=== PATIENT | male | born 1930 | race Caucasian/White ===

== ENCOUNTER 2017-11-23 11:36 | Day surgery (SDC) | payer MEDICARE ==
[2017-11-22 11:06] VITALS: BMI 29.1
[2017-11-23 12:00] LABS: #Eosinphils 0.1 thou/uL (0.0-0.7); #Lymphocytes 1.6 thou/uL (1.20-3.40); #Monocytes 0.7 thou/uL (0.11-0.59); #Neutrophils 3.9 thou/uL (1.40-6.50); %Basophils 0.5 % (0.0-1.0); %Eosinophils 1.9 % (0.0-10.0); %Lymphocytes 25.5 % (21.0-51.0); %Monocytes 10.7 % (0.0-10.0); %Neutrophils 61.5 % (42.0-75.0); Hemoglobin 15.6 g/dL (14.0-18.0); Mean Corpuscular HGB CONC 32.8 g/dL (32.0-36.0); Mean Corpuscular Hemoglobin 31.9 pg (27.0-31.0); Mean Corpuscular Volume 97.1 fl (80.0-94.0); Mean Platelet Volume 8.4 fL (7.4-10.4); Platelet Count 184 thou/uL (130-400); RBC Distribution Width 11.3 % (11.5-14.5); Red Blood Cell (RBC) Count 4.89 mill/uL (4.70-6.10); White Blood Cell (WBC) Count 6.4 thou/uL (4.8-10.8)
[2017-11-23 12:11] LABS: PTT 39.6 SEC (22.9-36.1); Prothrombin Time 22.9 SEC (12.0-14.7)
[2017-11-23 12:27] LABS: Anion Gap 12 mmol/L (10-20); BUN (Urea Nitrogen) 17 mg/dL (8.4-25.7); Calc. Creatinine Clearance 85 mL/min (70-130); Calcium 9.6 mg/dL (7.8-10.44); Carbon Dioxide 24 mmol/L (23-31); Chloride 106 mmol/L (98-107); Estimated GFR-MDRD 84; Glucose 108 mg/dL (83-110); Potassium 4.5 mmol/L (3.5-5.1); Sodium 137 mmol/L (136-145)
[2017-11-23] MEDS ORDERED: PROPOFOL 20 ML ONE (12:53)
--- NOTE | 2017-11-23 15:55 | EKG ---
Test Reason : PREOP Blood Pressure : / mmHG Vent. Rate : 094 BPM Atrial Rate : 120 BPM P-R Int : 000 ms QRS Dur : 124 ms QT Int : 380 ms P-R-T Axes : 053 024 026 degrees QTc Int : 475 ms Sinus tachycardia with 2nd degree A-V block (Mobitz I) with occasional Premature ventricular complexe s Non-specific intra-ventricular conduction delay Abnormal ECG Confirmed by PEE DOTY ([id number]) on 11/23/2017 3:55:04 PM Referred By: JEFF Confirmed By:PEE DOTY
[2017-11-23] MEDS ORDERED: PROPOFOL 200 MG/20 ML VIAL ONE (15:58)
--- NOTE | 2017-11-23 16:04 | EKG ---
Test Reason : POST CARDIOVERSION Blood Pressure : / mmHG Vent. Rate : 059 BPM Atrial Rate : 059 BPM P-R Int : 236 ms QRS Dur : 122 ms QT Int : 468 ms P-R-T Axes : 063 009 042 degrees QTc Int : 463 ms Sinus bradycardia with 1st degree A-V block Incomplete right bundle branch block Abnormal ECG Confirmed by PEE DOTY ([id number]) on 11/23/2017 4:03:47 PM Referred By: JEFF Confirmed By:PEE ODTY
--- NOTE | 2017-11-23 16:05 | OP ---
DATE OF PROCEDURE: 11/23/2017 CARDIOVERSION REPORT REFERRING PHYSICIAN: . REASON FOR PROCEDURE: Mr. Srinivasan is a pleasant 87-year-old man with prior history of atrial arrhythmi as, status post left ablation procedure, on chronic flecainide therapy, but now with recurrence in at rial tachycardia despite flecainide. He is well-anticoagulated with Xarelto. He is here for cardiov ersion. PROCEDURE: The patient received deep sedation by anesthesia specialist with propofol. After adequat e level of sedation achieved, a synchronized 70 joule shock promptly converted the patient back to si nus rhythm. Rate is 70 beats per minute. CONCLUSION: Successful cardioversion. PLAN: Continue flecainide for now and Xarelto. Office followup.
== END 2017-11-23 14:41 | disposition home or self-care (01) ==
LOC: CCL 11:36
PROVIDERS: ATTEND Internal Medicine Cardiovascular Disease
PROC: 5A2204Z Restoration of Cardiac Rhythm, Single (ICD-10-PCS; principal; 2017-11-23)
DX: I48.1 Persistent atrial fibrillation (principal); Z79.01 Long term (current) use of anticoagulants; Z79.899 Other long term (current) drug therapy
CPT/HCPCS: 80048; 85025; 85610; 85730; 92960; 93005; 93010; J2704

== ENCOUNTER 2018-12-18 15:23 | Observation (INO) | payer MEDICARE ==
[2018-12-18 15:59] LABS: #Basophils 0.1 thou/uL (0.0-0.2); #Eosinphils 0.1 thou/uL (0.0-0.7); #Lymphocytes 1.8 thou/uL (1.20-3.40); #Monocytes 0.7 thou/uL (0.11-0.59); %Basophils 1.2 % (0.0-1.0); %Eosinophils 1.3 % (0.0-10.0); %Monocytes 7.8 % (0.0-10.0); %Neutrophils 68.8 % (42.0-75.0); Hemoglobin 14.2 g/dL (14.0-18.0); Mean Corpuscular HGB CONC 33.8 g/dL (32.0-36.0); Mean Corpuscular Hemoglobin 32.1 pg (27.0-31.0); Mean Corpuscular Volume 95.1 fL (78.0-98.0); Platelet Count 200 thou/uL (130-400); RBC Distribution Width 11.7 % (11.5-14.5); Red Blood Cell (RBC) Count 4.42 mill/uL (4.70-6.10); White Blood Cell (WBC) Count 8.8 thou/uL (4.8-10.8)
[2018-12-18 16:10] LABS: ALT (SGPT) 19 U/L (8-55); AST (SGOT) 16 U/L (5-34); Albumin 3.9 g/dL (3.4-4.8); Alkaline Phosphatase 59 U/L (40-150); Anion Gap 14 mmol/L (10-20); BUN (Urea Nitrogen) 18 mg/dL (8.4-25.7); Bilirubin, Total 0.7 mg/dL (0.2-1.2); CK (CPK) 37 U/L (30-200); Calc. Creatinine Clearance 0 mL/min (70-130); Calcium 9.5 mg/dL (7.8-10.44); Carbon Dioxide 20 mmol/L (23-31); Chloride 106 mmol/L (98-107); Estimated GFR-MDRD 69; Globulin 2.2 g/dL (2.4-3.5); Glucose 146 mg/dL (83-110); Lipase 16 U/L (8-78); Potassium 4.2 mmol/L (3.5-5.1); Protein, Total 6.1 g/dL (5.8-8.1); Sodium 136 mmol/L (136-145)
--- NOTE | 2018-12-18 16:17 | RAD ---
EXAM: CHEST ONE VIEW HISTORY: Dyspnea and increased heart rate. Shortness of breath. COMPARISON: 06/21/2013 FINDINGS: A dual-lead left subclavian cardiac pacemaking device is now noted in place. Cardiac silhouette is at the upper limits of normal in size. Epicardial fat pad is seen at the left lung base. There is suggestion of slight blunting of the left lateral costophrenic angle, but this may be attributable to overlying soft tissue density as opposed to left pleural effusion. The lungs are otherwise clear. Vascular calcifications are seen in the thoracic aorta. The osseous structures are intact. IMPRESSION: 1. Blunting of the left lateral costophrenic angle, but this is felt to be related to overlying soft tissue density as opposed to pleural effusion. However, if patient's symptoms persist, follow-up PA and lateral chest x-ray is recommended.
[2018-12-18] MEDS ORDERED: Aspirin Chewable 81 MG TAB ONE (16:54)
[2018-12-18 19:28] LABS: Troponin I Less than 0.010 ng/mL (< 0.028)
[2018-12-18] MEDS ORDERED: Acetaminophen 325 MG TAB PO PRN (19:44)
[2018-12-18] MEDS ORDERED: Potassium Chloride 20 MEQ TAB PO PRN (21:06)
[2018-12-18] MEDS ORDERED: Finasteride 5 MG TAB PO SCH ×2 (21:07→21:30)
[2018-12-18] MEDS ORDERED: Furosemide 40 MG/4 ML VIAL SLOW IVP SCH (21:15)
[2018-12-18] MEDS ORDERED: Flecainide 50 MG TAB PO SCH (21:15)
[2018-12-18] MEDS ORDERED: Rivaroxaban 10 MG TAB PO SCH (21:15)
[2018-12-18] MEDS ORDERED: Metoprolol Tartrate 25 MG TAB PO SCH (21:15)
[2018-12-18] MEDS ORDERED: Loperamide HCl 2 MG CAP PO PRN (21:23)
[2018-12-18] MEDS ORDERED: Ezetimibe 10 MG TAB PO SCH (21:30)
[2018-12-18] MEDS: Famotidine 20 MG TAB PO SCH (21:35)
[2018-12-18] MEDS ORDERED: Lisinopril 20 MG TAB PO SCH (21:45)
[2018-12-18 22:29] LABS: Troponin I Less than 0.010 ng/mL (< 0.028)
--- NOTE | 2018-12-18 22:51 | HP ---
PRIMARY CARE PHYSICIAN: Dr. David Swanson. CHIEF COMPLAINT: Shortness of breath. HISTORY OF PRESENT ILLNESS: Mr. Srinivasan is a pleasant 88-year-old male with a past medical history of atrial fibrillation, status post ablations x2; hypertension; hyperlipidemia; and benign prostate hypertrophy, who had presented to [facility] ER earlier today after he experienced palpitations and worsening shortness of breath. He states that he had noticed that his heart rate running a little higher than normal. The last couple days, he states that his pacemaker device had been picking up some atrial fibrillation, he states that he had made an appointment with Dr. Mg for Wednesday and was waiting for his appointment; however, he had taken a trip with his to [place] and he states that he had noticed some worsening shortness of breath, therefore, wanted to come in sooner and be checked out. Upon arriving, he was noted to be in atrial flutter with a controlled rate on the monitor, therefore, Cardizem was not started. His D-dimer was normal and less than 0.27. His initial troponin was also negative at 0.014. However, his BNP was elevated at 309.7, which would cause some suspicion of acute on chronic CHF. The patient states that he takes furosemide at home just as needed, however, has not really been taking it lately. He was given 325 oral aspirin and transferred to [facility]. Upon arriving, the patient denied any headache, fever, chills, blurred vision, change in vision, lightheadedness, or dizziness. He had denied any chest pain, palpitation, shortness of breath, abdominal pain, nausea, vomiting, or diarrhea. He had denied any upper or lower extremity edema; however, he does appear to have some trace edema in his lower extremities. He states that his loan review manager is Dr. Farmer and he reports some mild shortness of breath with exertion, however, stable at this time. He had remained in atrial flutter on the monitor, however, in controlled rates in the 70s, 80s, and 90s. It was determined at that time the patient be brought under observation, be monitored on telemetry. A consult was placed for Cardiology Services and an echocardiogram was ordered and currently pending at this time. Due to patient's underlying pacemaker, an order for pacemaker interrogation was also placed and pending at this time. REVIEW OF SYSTEMS: All other systems reviewed and found to be negative unless mentioned in the HPI. PAST MEDICAL HISTORY: History of atrial fibrillation, status post ablation x2; pacemaker; benign prostatic hypertrophy; hypertension; hyperlipidemia; CHF; squamous cell carcinoma. PAST SURGICAL HISTORY: Ablation x2, left total knee replacement, cancerous mole removed from right upper chest, tonsillectomy, and pacemaker placement. PSYCHIATRIC HISTORY: None. SOCIAL HISTORY: The patient reports drinking socially which is very rarely. He denied any illicit drug use and he states that he is a former smoker, however, he quit over 38 years ago. KNOWN ALLERGIES: None. CURRENT HOME MEDICATIONS: 1. Xarelto 20 mg p.o. daily. 2. Potassium chloride 20 mEq p.o. daily. 3. Metoprolol 12.5 mg p.o. b.i.d. 4. Lisinopril 20 mg p.o. b.i.d. 5. Flecainide 100 mg p.o. b.i.d. 6. Finasteride 5 mg p.o. at bedtime. 7. Ezetimibe 10 mg p.o. at bedtime. 8. Amlodipine 5 mg p.o. daily. 9. Testosterone gel 20.25 mg daily. 10. Multivitamin 1 tablet p.o. daily. 11. Loperamide 2 mg p.o. as needed for diarrhea. 12. Furosemide 20 mg p.o. daily p.r.n. swelling. 13. Vitamin B12 at 1000 mcg p.o. daily. 14. Vitamin D3 at 1000 units p.o. daily. PHYSICAL EXAMINATION: VITAL SIGNS: BP 128/73, pulse 75, respirations 12, temperature 98.4 degrees Fahrenheit, O2 saturations 95% on room air. GENERAL: The patient is awake, alert, and oriented x3. He is currently lying comfortably in bed and in no acute distress. His is at bedside. HEENT: Atraumatic, normocephalic. Pupils are round and reactive to light. Extraocular muscles intact. Moist mucous membranes noted. NECK: Soft, supple. Trachea midline. CARDIOVASCULAR: Positive S1 and S2. Irregularly irregular. No murmur appreciated. RESPIRATORY: Clear to auscultation bilaterally. No wheezes, rales, or rhonchi. ABDOMEN: Soft, nontender. Bowel sounds present. A reducible periumbilical hernia noted. MUSCULOSKELETAL: Strength 5+ bilaterally in upper and lower extremities. Moves all extremities equal. Radial and pedal pulses palpable 2+ bilaterally. Trace edema noted in lower extremities. NEUROLOGIC: Cranial nerves 2 through 12 grossly intact. No focal deficits noted. Speech intact and normal. Gait not assessed. SKIN: Warm, dry, and intact. No rashes. No ulceration noted. PSYCHIATRIC: Good mood and affect. LABORATORY DATA: WBC 8.8, RBC 4.42, hemoglobin 14.2, platelets 200. D-dimer less than 0.27. Sodium 136, potassium 4.2, anion gap 14, BUN 18, creatinine 1.02, estimated GFR 69, glucose 146. Troponin 0.014, less than 0.010. BNP 309.7. Lipase 16. DIAGNOSTIC IMAGING: Portable chest x-ray shows blunting of left lateral costophrenic angle, but this felt to be related to overlying soft tissue density as opposed to pleural effusion. ASSESSMENT AND PLAN: 1. Atrial flutter with controlled ventricular rate. The patient will be placed on his home regimen at this time and Cardiology Services will be consulted in the morning. He will remain on the telemetry monitoring during his hospital stay. The patient's pacemaker will be interrogated and pending. 2. Acute on chronic congestive heart failure. The patient will be treated on his home regimen along with IV furosemide for further diuresis. A repeat echocardiogram will be ordered for the morning. 3. History of hypertension, currently stable. The patient will be resumed on home regimen. 4. Hyperlipidemia. Continue on home statin. Recheck lipid panel in the morning. 5. Shortness of breath and palpitations. This is likely secondary to patient's underlying atrial flutter and/or acute on chronic congestive heart failure. We have ruled out pulmonary embolism with his normal D-dimer. 6. BPH. Continue on home regimen. 7. Deep venous thrombosis and gastrointestinal prophylaxis. The patient will be continued on home Xarelto and he will be continued on PPI during hospital stay. CODE STATUS: Full code. Surrogate decision maker will be patient's , Kimberley Srinivasan. DISPOSITION: The patient will be placed in observation. He will remain on telemetry for further monitoring. Cardiology Services will be consulted in the morning along with an echocardiogram to assess patient's heart failure status. He will likely be discharged home in the next 1 to 2 days once he is stable from a Cardiology standpoint. Job ID: [id number]
[2018-12-19 05:53] LABS: Anion Gap 12 mmol/L (10-20); BUN (Urea Nitrogen) 16 mg/dL (8.4-25.7); Calc. Creatinine Clearance 83 mL/min (70-130); Calcium 9.6 mg/dL (7.8-10.44); Carbon Dioxide 23 mmol/L (23-31); Chloride 107 mmol/L (98-107); Estimated GFR-MDRD 86; Glucose 93 mg/dL (83-110); Sodium 138 mmol/L (136-145)
[2018-12-19 07:56] LABS: #Eosinphils 0.1 thou/uL (0.0-0.7); #Lymphocytes 1.9 thou/uL (1.20-3.40); #Monocytes 0.8 thou/uL (0.11-0.59); #Neutrophils 5.3 thou/uL (1.40-6.50); %Basophils 0.2 % (0.0-1.0); %Eosinophils 1.7 % (0.0-10.0); %Lymphocytes 23.6 % (21.0-51.0); %Monocytes 9.7 % (0.0-10.0); %Neutrophils 64.8 % (42.0-75.0); Mean Corpuscular HGB CONC 33.1 g/dL (32.0-36.0); Mean Corpuscular Hemoglobin 32.4 pg (27.0-31.0); Mean Corpuscular Volume 97.6 fL (78.0-98.0); Mean Platelet Volume 8.5 fL (7.4-10.4); Platelet Count 176 thou/uL (130-400); RBC Distribution Width 11.5 % (11.5-14.5); Red Blood Cell (RBC) Count 4.33 mill/uL (4.70-6.10); White Blood Cell (WBC) Count 8.2 thou/uL (4.8-10.8)
[2018-12-19] MEDS: Flecainide 50 MG TAB PO SCH ×2 (08:29→20:34)
[2018-12-19] MEDS: Famotidine 20 MG TAB PO SCH ×2 (08:29→20:34)
[2018-12-19] MEDS: Amlodipine 5 MG TAB PO SCH (08:29)
[2018-12-19] MEDS: Furosemide 40 MG/4 ML VIAL SLOW IVP SCH (08:29)
[2018-12-19] MEDS: Lisinopril 20 MG TAB PO SCH ×2 (08:30→20:33)
[2018-12-19] MEDS: Metoprolol Tartrate 25 MG TAB PO SCH ×2 (08:30→20:34)
--- NOTE | 2018-12-19 12:43 | PRG ---
DATE OF SERVICE: 12/19/2018 SUBJECTIVE: Mr. Srinivasan is a pleasant 88-year-old male with past medical history significant for atrial fibrillation status post ablation x2, chronic congestive heart failure, and hypertension, who presented to the hospital with complaints of shortness of breath and tachycardia. The patient has been admitted with recurrent atrial fibrillation/flutter along with acute on chronic systolic congestive heart failure exacerbation. The patient states that he has been urinating frequently, and his shortness of breath is much improved. He denies any chest pain or palpitations this morning. He denies any nausea or vomiting. No complaints at this time. OBJECTIVE: VITAL SIGNS: Blood pressure 104/65, O2 saturation is 93% on room air, pulse is 93, respirations are 16, temperature is 97.4. GENERAL: This is a well-appearing elderly male, resting in bed, in no acute distress. HEENT: Head is atraumatic and normocephalic. Mucous membranes are moist. NECK: No JVD. No carotid bruits noted. Supple. CV: S1 and S2. Occasionally irregular. No murmurs, rubs, or gallops. LUNGS: Regular respiratory rate and pattern, overall clear to auscultation bilaterally. ABDOMEN: Positive bowel sounds. Soft, nontender. EXTREMITIES: +2 DP pulses bilaterally. Trace edema bilaterally. SKIN: Warm and dry. NEURO: Cranial nerves 2 through 12 are intact. The patient is nonfocal. LABORATORY DATA: White blood cell count 8.2, hemoglobin 14, hematocrit 42.2, platelets are 176. Sodium 138, potassium 4.0, chloride 107, BUN 16, creatinine 0.84. Serial troponin was negative x3. ASSESSMENT: 1. Recurrent atrial fibrillation/flutter, status post ablation x2, CHADS-VASc score at least 4, patient anticoagulated with Xarelto. 2. Acute on chronic congestive heart failure exacerbation, secondary to above, improving with diuresis. 3. Hypertension. 4. Hyperlipidemia. 5. Chronic systolic congestive heart failure, EF was 45% per echo in 2013. 6. The patient with dual chamber Medtronic pacemaker. PLAN: At this time, both Cardiology and EP have been consulted, and we will await recommendations. It is likely the patient may need repeat EP study. We will continue the patient's Xarelto, and we will defer further medication changes regarding antiarrhythmic to Cardiology. We will continue gentle IV diuresis for now. Further recommendations based on hospital course. Job ID: [id number]
[2018-12-19 14:56] VITALS: BMI 28.3
[2018-12-19] MEDS ORDERED: Rivaroxaban 10 MG TAB PO SCH (17:00)
[2018-12-19] MEDS ORDERED: Finasteride 5 MG TAB PO SCH (21:00)
[2018-12-19] MEDS ORDERED: Ezetimibe 10 MG TAB PO SCH (21:00)
--- NOTE | 2018-12-20 07:20 | CON ---
DATE OF CONSULTATION: 12/19/2018 I am seeing Mr. 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 His problems are; 1. Recurrent atrial arrhythmias. a. History of atrial fibrillation, functioning persistence, status post pulmonary venous isolation x2; in June 2013 and June 2015. b. Late recurrent atrial arrhythmias, suppressed with flecainide in the past. c. Current admission with atrial flutter, mild congestive heart failure, short fibrillation noted by telemetry. 2. Documented CHADS-VASc score of 3 and reduced left atrial appendage velocity possibly related to appendage isolation in the past on lifelong anticoagulation. 3. Sick sinus syndrome prompting a dual-chamber pacemaker implantation in a Medtronic Thi XT DR pacemaker on 04/29/2018. 4. Remote history of reduced left ventricular ejection fraction at 40% to 45% on LUIS on 05/23/2013. 5. hypertension and hyperlipidemia. ALLERGIES: NONE NOTED. MEDICATIONS: At home, included; 1. Xarelto. 2. Multivitamin. 3. Testosterone. 4. Finasteride. 5. Cyanocobalamin. 6. Fluorouracil. 7. Cholecalciferol. 8. Clobetasol. 9. Metoprolol tartrate. 10. Flecainide 100 mg twice a day. 11. Ezetimibe. 12. Lisinopril. 13. Furosemide. 14. Potassium. 15. Amlodipine. 16. Ma[employer] supplement. 17. Metronidazole. 18. Loperamide. SUBJECTIVE: Mr. Srinivasan is here because of worsening dyspnea along with palpitations, increased frequency of urination. No chest pains. Does not pass out. No stroke-like symptoms or bleeding issues. No fever, chills, or cough. Rest of 12-point system otherwise unremarkable. I was consulted by Dr. Farmer for further EP evaluation and treatment. PAST MEDICAL HISTORY: As above. SOCIAL HISTORY: The patient denies smoking, EtOH, or drug abuse. FAMILY HISTORY: Not contributory. OBJECTIVE DATA: VITAL SIGNS: Blood pressure is 104/65, heart rate 93, respirations 16, and temperature 97.4 degrees Fahrenheit. GENERAL: Alert and oriented man, in no apparent distress. NECK: Supple. Jugular veins not distended. CHEST: Coarse without crackles. HEART: Sounds are irregular. S1 and s2 are variable. No murmur or gallop. Left epicardial pacemaker insertion site is well healed. ABDOMEN: Benign. Bowel sounds positive. EXTREMITIES: Lower extremities without edema, clubbing, or cyanosis. Pulses are adequate. NEUROLOGIC: The patient is nonfocal. MUSCULOSKELETAL: Without joint swelling or deformity. SKIN: Without rash. DATABASE: EKG was reviewed, revealing an atypical atrial flutter. On presentation, short episode atrial fibrillation also noted on telemetry. EKG complexes are narrow with minor intraventricular conduction delay at duration of 120 milliseconds of the QRS. Nonspecific T-wave changes. Inferior Q-waves are noted. LABORATORY DATA: White cell count 8.2, hemoglobin 14, and platelet count is 176. Sodium 138, potassium 4, BUN is 16, creatinine is 0.84. BNP 309. Albumin and globulin 3.9 and 2.2. ASSESSMENT AND PLAN: Mr. Srinivasan is a pleasant 88-year-old man with a history of persistent nonsustained atrial fibrillations, status post 2 pulmonary venous left atrial ablation procedures by Dr. Hanna in 2012 and 2014. He also had late recurrent atrial arrhythmias, and he has been reasonably well suppressed with flecainide, although he did require a cardioversion in October 2017; hence progressive sinus node disease, he underwent dual-chamber pacemaker implantation by me in April 2018. Now, he seems to be persisting atrial flutter/fibrillation, the pacemaker occasionally blanks out some of the atrial flutter waves and may be tracking atrial arrhythmia, although mostly natively conducting. Ventricular rates are in 105 to 110 range at most. I discussed the treatment options. At this point, I still aspire to maintain sinus rhythm with this gentleman who feels better by normal rhythm. Hence, he is adequately anticoagulated and we could consider a turning on atrial ATP therapies and possibly manually overdrive pacing to terminate the arrhythmia. Should that not be successful, he could undergo a cardioversion tomorrow for which I will keep him n.p.o. status. We discussed alternative treatment options, which could include alternative antiarrhythmic therapy as well as ablation procedure. For now, he would prefer holding off on the ablation, likely would be extensive left atrial ablation as well. We also discussed the potential role of atrial arrhythmias and development of heart failure. Eventually, 2D echo results will be seeked out to rule out worsening cardiomyopathy. For now, we will continue anticoagulation and flecainide. Plan for cardioversion tomorrow unless atrial ATP therapies, which would be turned on tonight, are effective. I have discussed with Dr. Farmer and the patient and his , who all agreed and will proceed as such. Job ID: [id number]
[2018-12-20] MEDS: Lisinopril 20 MG TAB PO SCH (09:00)
[2018-12-20] MEDS: Furosemide 40 MG/4 ML VIAL SLOW IVP SCH (09:00)
[2018-12-20] MEDS: Amlodipine 5 MG TAB PO SCH (09:24)
[2018-12-20] MEDS: Metoprolol Tartrate 25 MG TAB PO SCH (09:24)
[2018-12-20] MEDS: Flecainide 50 MG TAB PO SCH (09:25)
[2018-12-20] MEDS: Famotidine 20 MG TAB PO SCH (09:25)
[2018-12-20 12:11] VITALS: BP 99/64; TEMP 97.2
--- NOTE | 2018-12-20 12:40 | PDOC.CTH ---
Cardiology Progress Note - Subjective EP PROGRESS NOTE: 12/11/18 Mr. Srinivasan is here because of worsening dyspnea along with palpitations, increased frequency of urination. No chest pains. Does not pass out. No stroke- like symptoms or bleeding issues. No fever, chills, or cough. Rest of 12-point system otherwise unremarkable. I was consulted by Dr. Farmer for further EP evaluation and treatment. He underwent CV and is feeling well. No new cardiac concerns this AM. - Objective Vital Signs Temp Pulse Resp BP BP Pulse Ox 12/20/18 11:54 97.2 F L 60 16 99/64 95 12/20/18 09:24 65 12/20/18 09:18 97.5 F L 65 16 116/69 98 12/20/18 09:00 116/69 12/20/18 03:16 74 20 107/59 L 95 Admit Weight 241 lb 6.4 oz Weight 205 lb 3.2 oz 12/19/18 12/20/18 12/21/18 06:59 06:59 06:59 Intake Total 1040 340 Output Total 2325 2450 Balance -1285 -2110 - Physical Examination General/Neuro: alert & oriented x3, NAD Neck: carotid US brisk, no JVD present Lungs: CTA, unlabored respirations Heart: PMI normal, RRR Abdomen: NT/ND, soft - Telemetry Telemetry Rhythm: AP-VS - Labs Result Diagrams: 12/19/18 07:29 12/19/18 04:55 Troponin/CKMB Troponin I Less than 0.010 ng/mL (< 0.028) 12/18/18 21:54 - Assessment/Plan 1. Recurrent atrial arrhythmias. a. History of atrial fibrillation, functioning persistence, status post pulmonary venous isolation x2; in June 2013 and June 2015. b. Late recurrent atrial arrhythmias, suppressed with flecainide. S/ P recent DC. In SR now. Pt prefers rx management vs redo ablation at this time. c. Current admission with atrial flutter, mild congestive heart failure, short fibrillation noted by telemetry. 2. Documented CHADS-VASc score of 3 and reduced left atrial appendage velocity possibly related to appendage isolation in the past on lifelong anticoagulation. 3. Sick sinus syndrome prompting a dual-chamber pacemaker implantation in a Medtronic [place] XT DR pacemaker on 04/29/2018 4. Remote history of reduced left ventricular ejection fraction at 40% to 45% on LUIS on 05/23/2013. 5. CAD risk factors include- hypertension and hyperlipidemia. Continue flecainide 100mg PO BID for AAD and metoprolol 12.5mg. Continue Xarelto for OAC. Having PPM interrogated this AM, possible undersensing of atrial flutter. ATP therapies turned on 12/19, adjusting to better sense and treat slower atrial tachycardias as well. Will continue to follow. Could consider redo LA ablation in the future although this comes with increased risk given his age and I suspect it would be a fairly extensive ablation.
[2018-12-20] MEDS ORDERED: PROPOFOL 200 MG/20 ML VIAL ONE (13:34)
--- NOTE | 2018-12-20 14:22 | PRG ---
DATE OF SERVICE: SUBJECTIVE: Mr. Srinivasan underwent cardioversion this morning and feels well today. No complaints. OBJECTIVE: VITAL SIGNS: His blood pressure is 116/69, pulse is 64 and regular. LUNGS: Clear. CARDIAC: Normal S1 and normal S2. ABDOMEN: Soft and nontender. ASSESSMENT: 1. Status post cardioversion for atrial fibrillation/atrial flutter, he had both. 2. Normal left ventricular function on echocardiogram previously. PLAN: He will go home on medicine identical to what he came in on. Job ID: [id number]
--- NOTE | 2018-12-20 18:48 | OP ---
PROCEDURE: Cardioversion. Patient was brought to the post Cath area in the fasting state. He was sedated by anesthesia. He was given one dose of synchronized energy at 200 joules and converted to atrial paced ventricular paced. The rhythm prior to cardioversion was atrial fibrillation. INDICATION: Persistent atrial fibrillation and intermittent atrial flutter. CONCLUSION: Successful cardioversion. Rhythm prior to cardioversion was atrial fibrillation with ventricular sens ing. Rhythm post cardioversion is atrial and ventricular pacing.
--- NOTE | 2018-12-21 06:52 | DIS ---
DATE OF ADMISSION: 12/18/2018 DATE OF DISCHARGE: 12/20/2018 ADMISSION DIAGNOSES: Shortness of breath and palpitations. DISCHARGE DIAGNOSES: 1. Shortness of breath secondary to recurrent atrial fibrillation/atrial flutter. 2. Atrial fibrillation, status post ablation x2 in the past, recurrent and symptomatic, status post cardioversion with Dr. Farmer this morning, successful to AV paced rhythm, CHADS-VASc equals 4, on anticoagulation with Xarelto. 3. Acute systolic congestive heart failure exacerbation secondary to atrial fibrillation, resolved, normal left ventricular systolic function per echocardiogram this hospitalization. 4. Hypertension. 5. Hyperlipidemia. 6. The patient with dual-chamber Medtronic pacemaker. CONSULTANTS: Dr. Farmer and Dr. Mg of Cardiology. PROCEDURES PERFORMED: Direct cardioversion with Dr. Farmer. BRIEF HOSPITAL COURSE: The patient is a very pleasant 88-year-old male with past medical history significant for atrial fibrillation, status post ablations in the past, chronic congestive heart failure, and hypertension, who presented to the hospital with complaints of shortness of breath and intermittent palpitations. The patient was found to be back in atrial fibrillation/flutter per device check. Both Dr. Farmer and Dr. Mg were consulted. The patient did have a mild heart failure exacerbation and volume overload secondary to his arrhythmia, which resolved with IV diuresis. The patient was given options by Dr. Mg including repeat EP study versus cardioversion, and the patient did opt for cardioversion at this time. The patient was successfully cardioverted to AV paced rhythm. All of the patient's presenting symptoms have resolved. He has no shortness of breath or palpitations at this time. He has been cleared by both cardiologists for discharge. DISCHARGE INSTRUCTIONS: The patient is to continue his current cardiac regimen including flecainide 100 mg b.i.d. along with his Xarelto. No changes were made to his cardiac regimen at this time. FOLLOWUP: The patient will follow up with both Dr. Mg and Dr. Farmer in the outpatient setting. He will continue his anticoagulation, and return to the hospital with any further symptoms or problems. CONDITION AT DISCHARGE: Stable. DISCHARGE DISPOSITION: Home. The care of this patient has been discussed with Dr. Cohen, who agrees with the above. Job ID: [id number]
--- NOTE | 2018-12-21 12:03 | EKG ---
Test Reason : POST CARDIOVERSION Blood Pressure : / mmHG Vent. Rate : 060 BPM Atrial Rate : 060 BPM P-R Int : 224 ms QRS Dur : 114 ms QT Int : 442 ms P-R-T Axes : 051 -18 057 degrees QTc Int : 442 ms Electronic atrial pacemaker Abnormal ECG When compared with ECG of 23-NOV-2017 13:04, T wave inversion now evident in Anterior leads Confirmed by DR. Dylan MENDOZA ([id number]) on 12/21/2018 12:02:36 PM Referred By: KELLY Confirmed By:DR. Dylan MENDOZA
== END 2018-12-20 15:10 | disposition home or self-care (01) ==
LOC: SCSER 15:23 → 2SW 16:20
PROVIDERS: ADMIT Family Medicine; ATTEND Internal Medicine Cardiovascular Disease
PROC: 5A2204Z Restoration of Cardiac Rhythm, Single (ICD-10-PCS; principal; 2018-12-18)
DX: I48.1 Persistent atrial fibrillation (principal); I48.4 Atypical atrial flutter; I11.0 Hypertensive heart disease with heart failure; I50.23 Acute on chronic systolic (congestive) heart failure; I49.5 Sick sinus syndrome; E78.5 Hyperlipidemia, unspecified; N40.1 Benign prostatic hyperplasia with lower urinary tract symptoms; R35.0 Frequency of micturition; Z95.0 Presence of cardiac pacemaker; Z98.890 Other specified postprocedural states; Z87.891 Personal history of nicotine dependence; Z79.01 Long term (current) use of anticoagulants; Z79.899 Other long term (current) drug therapy
CPT/HCPCS: 71045; 80048; 80053; 82550; 83690; 83880; 84484 ×2; 85025 ×2; 85379; 92960; 93005 ×2; 93306; 94760; 96374; 96376; 97139; 99285; G0378 ×2; 36415; 93010; J1940; J2704

== ENCOUNTER 2020-04-05 06:15 | Day surgery (SDC) | payer MEDICARE ==
[2020-04-03 12:10] VITALS: BMI 28.6
[2020-04-05] MEDS ORDERED: PROPOFOL 20 ML ONE (07:00)
[2020-04-05] MEDS ORDERED: Lidocaine 1% PF 5 ML VIAL ONE ×2 (07:00→09:21)
--- NOTE | 2020-04-05 07:34 | OP ---
DATE OF PROCEDURE: 04/05/2020 PROCEDURE PERFORMED: Cardioversion. INDICATION: Persistent atrial fibrillation, symptomatic. DESCRIPTION OF PROCEDURE: The patient is brought to the recovery area in the fasting state. He was sedated. He was given 200 joules of direct current energy and converted to sinus rhythm. CONCLUSION: Successful cardioversion. COMPLICATIONS: None. Job ID: [id number]
[2020-04-05] MEDS ORDERED: PROPOFOL 200 MG/20 ML VIAL ONE (09:21)
== END 2020-04-05 08:25 | disposition home or self-care (01) ==
LOC: SDC 06:15
PROVIDERS: ATTEND Internal Medicine Cardiovascular Disease
PROC: 5A2204Z Restoration of Cardiac Rhythm, Single (ICD-10-PCS; principal; 2020-04-05)
DX: I48.19 Other persistent atrial fibrillation (principal); I11.0 Hypertensive heart disease with heart failure; I50.32 Chronic diastolic (congestive) heart failure; Q21.1 Atrial septal defect; I34.0 Nonrheumatic mitral (valve) insufficiency; E78.00 Pure hypercholesterolemia, unspecified; E78.5 Hyperlipidemia, unspecified; N40.0 Benign prostatic hyperplasia without lower urinary tract symptoms; G47.33 Obstructive sleep apnea (adult) (pediatric); M19.90 Unspecified osteoarthritis, unspecified site; L40.9 Psoriasis, unspecified; Z87.891 Personal history of nicotine dependence; Z79.01 Long term (current) use of anticoagulants; Z79.899 Other long term (current) drug therapy
CPT/HCPCS: 92960; J2704

== ENCOUNTER 2020-08-14 09:59 | Outpatient (CLI) | payer MEDICARE ==
--- NOTE | 2020-08-14 10:51 | CT ---
CT Abdomen Pelvis W Con History: Diverticulitis Comparison: Abdomen and pelvis CT 2013 Findings: Lung bases are clear. No pericardial effusion. Liver and spleen are unremarkable as well as the pancreas. Adrenal glands are normal. No hydronephrosis. No perinephric inflammation. Fat and bladder containing right indirect inguinal hernia. Prostate is enlarged. Extensive diverticular disease sigmoid colon and descending as well as transver se colon and ascending colon. No acute active current inflammation. Appendix is not inflamed. The celiac trunk and superior mesenteric arteries are patent. No free intraperitoneal gas or fluid. Moderate degenerative disease between the spinous processes. Impression: 1. Extensive diverticular disease throughout the colon without active inflammation. 2. No acute inflammatory process within the abdomen or pelvis. 3. Fat and urinary bladder roof containing right inguinal hernia. 4. 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
== END 2020-08-14 10:00 | disposition home or self-care (01) ==
LOC: BICCT 09:59
PROVIDERS: ATTEND Physician Assistant Medical
DX: K57.92 Diverticulitis of intestine, part unspecified, without perforation or abscess without bleeding (principal); R10.32 Left lower quadrant pain; R19.7 Diarrhea, unspecified; K40.90 Unilateral inguinal hernia, without obstruction or gangrene, not specified as recurrent; I77.811 Abdominal aortic ectasia; K57.30 Diverticulosis of large intestine without perforation or abscess without bleeding
CPT/HCPCS: 74177